=== PATIENT | female | born 1950 | race Caucasian/White ===

== ENCOUNTER 2023-11-09 10:34 | Outpatient (CLI) | payer MEDICARE, SELFPAY ==
--- NOTE | 2023-11-09 12:06 | W.ANESCHARGE ---
Anesthesia Charges Start Date/Time Anesthesia Start Date: 11/09/23 Anesthesia Start Time: 11:35 Stop Date/Time Anesthesia Stop Date: 11/09/23 Anesthesia Stop Time: 12:04
--- NOTE | 2023-11-09 13:23 | W.ANESCHARGE ---
Anesthesia Charges Start Date/Time Anesthesia Start Date: 11/09/23 Anesthesia Start Time: 11:35 Stop Date/Time Anesthesia Stop Date: 11/09/23 Anesthesia Stop Time: 12:04 Summary Extremes of Age - Over 70 or under 1: MDA
== END 2023-11-09 10:35 | disposition home or self-care (01) ==
LOC: OP CLINIC 10:37
PROVIDERS: PCP Family Medicine; Visit Provider Internal Medicine Gastroenterology
DX: Z12.11 Encounter for screening for malignant neoplasm of colon (principal); Q43.8 Other specified congenital malformations of intestine; Z83.719 Family history of colon polyps, unspecified
CPT/HCPCS: 00812; 45378; 99100; J2704

== ENCOUNTER 2024-03-29 23:24 | Emergency (ER) | payer MEDICARE, SELFPAY ==
--- OUTSIDE RECORDS SUMMARY | 2024-03-29 23:26 | XMS_ITS | Clinical Summary ---
Author Organization [facility] [facility] Address [place], [place] [address] Care Team Providers Care Orientor Name Role Phone Shazia Forbes MD Primary Care Provider [phone] Allergies No known active allergies Medications multivitamin capsule Take 1 Cap by mouth once daily. Active Calcium-Magnesiu m-Zinc tab Take 1 Tab by mouth once daily. Active cholecalciferol (VITAMIN D3) 1,000 unit capsule Take 1,000 Units by mouth once daily. Active glucosamine/jackie droitin/C/Eliud (GLUCOSAMINE 1500 COMPLEX ORAL) 2 Active apixaban (ELIQUIS) 5 mg tabletIndication s:Persistent atrial fibrillation (HC),Hypertensio n, unspecified type,Paroxysmal atrial fibrillation (HC) Take 1 Tablet (5 mg) by mouth two times daily. 180 Tablet 3 4 Active amLODIPine (NORVASC) 5 mg tabletIndication s:Hypertension, unspecified type Take 1 Tablet (5 mg) by mouth once daily. 90 Tablet 3 4 Active metoprolol succinate (TOPROL XL) 50 mg sustained-releas e tabletIndication s:Persistent atrial fibrillation (HC) Take 1 Tablet (50 mg) by mouth once daily. 90 Tablet 3 4 Active polyethylene glycol-electroly te (GOLYTELY) 236-22.74-6.74 -5.86 gram suspensionIndica tions:Family history of colonic polyps Drink 2 liters the day before colonoscopy and 2 liters 6 hours before colonoscopy appointment 4000 mL 4 Active Active Problems Problem Noted Date Diagnosed Date Paroxysmal atrial fibrillation 10/23/2023 Overview (10/23/2023): Documented on 03/07/2022 by HERBERT CHOW Assessment & Plan (10/23/2023 9:38 AM CDT): Ablation. No recurrence since. Menopause 07/20/2023 Hyperlipidemia 07/20/2023 Lesion of external ear, right 07/20/2023 Prediabetes 07/04/2022 HTN (hypertension) 07/04/2022 Family history of colonic polyps 07/29/2018 Overview (11/09/2023): Colonoscopy 07/2018 diverticulosis, repeat in 5 years with Pediatrics scope Colonoscopy 10/2023 tortuous sigmoid, repeat in 5 years with Pediatrics scope On continuous oral anticoagulation 04/10/2018 Unspecified essential hypertension 05/29/2007 Resolved Problems Problem Noted Date Diagnosed Date Resolved Date Persistent atrial fibrillation 07/04/2022 10/23/2023 Immunizations Name Administration Dates Next Due COVID-19 VACCINE SPIKEVAX (M ODERNA 50MCG/0.5ML) 12YO+ PFS 07/20/2023 COVID-19 vaccine (Pfizer-Bio NTech 30mcg/0.3mL) 12YO+ MNOAE-SUCROSE PF, MDV 06/30/2021 COVID-19 vaccine (Pfizer-Bio NTech 30mcg/0.3mL) PF, MDV 12/09/2021,01/04/2021,06/18/2020,2020 Hepatitis A (Adult) 03/30/2006,09/27/2005 Hepatitis B (Adult) 05/15/2007 Influenza A (H1N1), Inactiva annmarie (Age >=3 Years) 01/29/2009 Influenza, High-dose Inactivated 12/28/2017 Influenza, High-dose Quadriv alent Inactivated 12/26/2022 Influenza, IIV3 (Age >=3 years) 12/14/2014,06/29,12/26/2011 Influenza, IIV4 12/31/2012 Influenza, Inactivated AIIV4 (Age 65+ Years) Preserv Free 01/04/2021,02/03/2020 Influenza, Inactivated IIV3 (Age 65+ Years) Preserv Free 12/09/2021,12/24/2016 Pneumococcal Poly,23-Valent (Pneumovax) 02/03/2020 Pneumococcal conj 13-Valent (Prevnar 13) 12/28/2017 Td (Age >=7 Years) 04/01/2003 Tdap 01/23/2013 Zoster (Shingrix-RZV, recombinant) 07/20/2022 Zoster (Zostavax-ZVL, live) 01/23/2013 Family History Medical History Relation Name Comments Diabetes Father Hypertension Father Stroke Father Cancer-colon Mother Cancer-breast No Family History Relation Name Status Comments Father (Age 79) stroke Mother Alive Social History Tobacco Use Types Packs/Day Years Used Date Smoking Tobacco: Never Smokeless Tobacco: Never Tobacco Cessation:Counseling Given: Yes Alcohol Use Standard Drinks/Week Comments Yes 3 (1 standard drink = 0.6 oz pur e alcohol) [facility] Utilities Answer Date Recorded Do you have trouble paying f or utilities (for example, heat, electricity, water, phone)? Yes 07/20/2023 PHQ-2 Answer Date Recorded PHQ-2 TOTAL SCORE 0 07/20/2023 Social Connections Answer Date Recorded Do you often feel lonely or isolated from those around you? 0 07/20/2023 Financial Resource Strain Answer Date R ecorded Difficulty of Paying Living Expenses 3 07/20/2023 Difficulty of Paying Living Expenses Not on file 07/20/2023 Food Insecurity Answer Date Recorded Do you worry your food will run out before you are able to buy more? 1 07/20/2023 Transportation Needs Answer Date Record ed Does lack of transportation keep you from medica l appointments? 1 07/20/2023 Does lack of transportation keep you from work, meetings or getting things that you need? 1 07/20/2023 Housing Stability Answer Date Recorded What is your housing situation today? 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 on file Not on file Not on file Obstetrics History Para Term AB IAB SAB Ectopic Multiple Livin g Live Births 3 3 3 Date Outcome GA Total Labor Labor/2nd/3rd Weight Sex Type Anes PTL Maranda A1 A5 Name Clin Para Para Para Last Filed Vital Signs Vital Sign Reading Time Taken Comments Blood Pressure 136/87 10/23/2023 9:31 AM CDT Pulse 80 10/23/2023 9:31 AM CDT Temperature 36.7 C (98 F) 07/01/2022 10:16 AM CDT Respiratory Rate 16 07/01/2022 10:16 AM CDT Oxygen Saturation 96% 10/23/2023 9:31 AM CDT Inhaled Oxygen Concentration - - Weight 84.5 kg (186 lb 4.8 oz) 10/23/2023 9:31 A M CDT Height 173.6 cm (5' 8.35) 10/23/2023 9:31 AM CD T Body Mass Index 28.04 10/23/2023 9:31 AM CDT Plan of Treatment Health Maintenance Due Date Last Done Comments RSV vaccine for adults or (1 - Risk 60-74 years 1-dose series) 2011 Zoster (shingles) series for age 50+ (3 of 3) 09/14/2022 07/20/2022, 01/23/2013 Tetanus booster 01/23/2023 01/23/2013, 04/01/2003 COVID-19 vaccine series ( season) 2023 07/20/2023, 12/26/2022, 12/09/2021, Additional history exists Influenza for age 65+ 11/25/2023 12/26/2022 , 12/09/2021, 01/04/2021, Additional history exists Depression screening for age 12+ 07/19/2024 07/20/2023, 07/20/2023, 07/04/2022, Additional history exists Medicare Wellness for age 65+ 07/20/2024, 07/04/2022, 06/30/2021, Additional history exists Mammogram for age 45-75 10/17/2024 10/18/19 24, 07/29/2021, 02/17/2020, Additional history exists BMI (ht and wt on same day) for age 18+ 10/22/2024 10/23/2023, 07/20/2023, 07/18/2023, Additional history exists Lipids for age 45-75 07/19/2028 07/20/2023, 07/12/2022, 07/29/2021, Additional history exists Colonoscopy through age 75 11/08/202811/08, 11/09/2023, 07/29/2018, Additional history exists Tdap Completed 01/23/2013 Hepatitis C screening for ag e 18-79 Completed 12/28/2017 Pneumococcal series for age 50+ Completed , 12/28/2017 DEXA/DXA scan for age 65+ Completed 10/18/2023, 11/2017 Procedures Procedure Name Priority Date/Time Associated Diagnosis Comments COLONOSCOPY SCREENING Routine 11/09/2023 12:00 AM CDT Family history of colonic polyps XR MAMMO BILAT SCREENING Routine 10/18/2023 10:07 AM CDT Visit for screening mammogram XR DXA BONE DENSITY 2 SITES AXIAL Routine 10/18/2023 9:48 AM CDT Menopause LIPID PANEL W REFLEX MEASURED LDL Routine 07/20/2023 9:50 AM CDT Hyperlipidemia, unspecified hyperlipidemia type ANTI HCV Routine 12/28/2017 2:43 PM CDT Need for hepatitis C screening test from Last 3 Months or Most Recently Relevant to Health Maintenance Results * COLONOSCOPY SCREENING [[id number]] (11/09/2023 12:00 AM CDT) us Shazia Forbes MD GI PROCEDURE ORD Final Resu lt * XR MAMMO BILAT SCREENING [[id number]] (10/18/2023 10:07 AM CDT) Anatomical Region Laterality Modality BREASTS, Breast Left, Breast Right Bilateral Mammography Impressions 10/18/2023 2:24 PM CDT There is no radiographic evidence for malignancy. Recommend annual mammograms. MAMMOGRAM ASSESSMENT: ACR 1 Negative PATIENTS: You will also receive a letter with your examination results in an easy to read format. If you have questions about your results, please contact your referring provider. Narrative 10/18/2023 2:24 PM CDT For Patients: As a result of the Century Cures Act, medical imaging exams and procedure reports are released immediately into your electronic medical record. You may view this report before your referring provider. If you have questions, please contact your health care provider. XR MAMMO BILAT SCREENING [[id number]] CLINICAL HISTORY: This is an asymptomatic 73 y.o. patient. INDICATION FOR EXAM: Mammogram Screening. TECHNIQUE: CC & MLO views were obtained. This study was evaluated with the assistance of Computer-Aided Detection. COMPARISON FILM: Yes 07/29/21 [facility] 02/17/20 [facility] FINDINGS: The breasts are almost entirely fatty. There are no dominant masses, suspicious micro calcifications or areas of architectural distortion. us Shazia Forbes MD MAMMO Final Resul t * (ABNORMAL) XR DXA BONE DENSITY 2 SITES AXIAL (10/18/2023 9:48 AM CDT) Anatomical Region Laterality Modality Spine, HIPS, HIPL, HIPR Other Impressions 10/25/2023 2:32 PM CDT Osteopenia. RECOMMENDATIONS: The National Osteoporosis Foundation recommends pharmacologic treatment for patients with T-scores of -2.5 or less, patients with prior history of fragility fractures, or patients with 10-year probability of greater than 3% at hips or greater than 20% of suffering major osteoporotic fractures. Recommend continued optimization of calcium and vitamin D intake through dietary means and/or supplementation and regular exercise. Repeat scan recommended in 3-5 years. Marielena Velazco PA-C [facility] 10/25/2023 Narrative 10/25/2023 2:32 PM CDT For Patients: Results are automatically released to your [facility] ([email or web address]) account once available, in compliance with federal regulations. This means that you may see your results before your provider has had a chance to review them. Please allow 2-3 business days for your provider to comment on the results. XR DXA Bone Mineral Density (BMD) EXAM LOCATION: [address] [address] PATIENT NAME: Lindsay Lauren DATE OF : 1950 EXAM DATE: 10/18/2023 REQUESTING PROVIDER: Shazia Forbes MD GENDER AT : female HEIGHT: 5' 8.58 (07/20/2023) WEIGHT: 183 lb 12.8 oz (07/20/2023) MENOPAUSAL STATUS: Postmenopausal RACE/ETHNICITY: White RISK FACTORS: White Race CURRENT MEDICATION FOR BONE LOSS: NONE INDICATION: Post-Menopause and Follow-up of normal DXA COMPARISON DATE(S): 2018 DXA scans are compared to prior studies for a patient only when the two (or more) studies were performed on the same scanner. It is not possible to compare data generated on one scanner to data from another because there are not standards in DXA equipment. This applies even if the two scanners are made by the same cryptologic technician technical. PROCEDURE: Dual-energy x-ray absorptiometry performed with routine technique. Reporting is completed in the form of a T-score. The T-score represents the standard deviation from peak bone mass based on young healthy adult. A Z-score is used for diagnosis in premenopausal women, and for men under the age of 50. FINDINGS: RESULT LUMBAR SPINE L1 - L4 BMD: 1.169 g/cm2 T-Score: - 0.2 Z-Score: + 0.9 Change from prior in 2018: Decrease 0.5%. RESULTS FEMUR Left femoral neck BMD: 0.911 g/cm2 T-Score: - 0.9 Z-Score: + 0.5 Change from prior in 2018: Decrease 6.0%. Right femoral neck BMD: 0.894 g/cm2 T-Score: - 1.0 Z-Score: + 0.4 Change from prior in 2018: Decrease 9.1%. Left hip BMD: 0.944 g/cm2 T-Score: - 0.5 Z-Score: + 0.7 Change from prior in 2018: Decrease 3.7%. Right hip BMD: 0.966 g/cm2 T-Score: - 0.3 Z-Score: + 0.8 Change from prior in 2018: Decrease 6.3%. WHO criteria: Normal: T-score at or above -1 SD Osteopenia: T-score between -1.1 and -2.4 SD Osteoporosis: T-score at or below -2.5 SD FRAX RISK CALCULATION (USED FOR OSTEOPENIA ONLY): 10-year probability of major osteoporotic fracture: 9.4%. 10-year probability of hip fracture: 1.2%. Shazia Forbes MD DEXA Final Resul t * (ABNORMAL) LIPID PANEL W REFLEX MEASURED LDL (07/20/2023 9:50 AM CDT) Pathologist [facility] CHOLESTEROL,TOTAL 225(H) 100 - 199 mg/dL 07/20/2023 4:18 PM CDT [facility] Comment: Cholesterol, Total Reference Ranges Desirable <200 mg/dL Borderline 200-239 mg/dL High >=240 mg/dL TRIGLYCERIDES 107 <150 mg/dL 07/20/2023 4:18 PM CDT [facility] HDL CHOLESTEROL 63 >40 mg/dL 4:18 PM CDT [facility] NON-HDL CHOLESTEROL 162(H) <145 mg/dl 07/20/2023 4:18 PM CDT [facility] CHOL/HDL RATIO 3.57 <4.50 07/20/2023 4:18 PM CDT [facility] LDL CHOLESTEROL 141(H) <=130 mg/dL 07/20/2023 4:18 PM CDT [facility] VLDL CHOLESTEROL 21 <=30 mg/dL 07/20/2023 4:18 PM CDT [facility] PROVIDER ORDERED STATUS RANDOM 07/20/2023 4:18 PM CDT [facility] Blood BLOOD SPECIMEN / Unknown Venipuncture / Unknown 07/20/2023 9:50 AM CDT 07/20/2023 9:54 AM CDT Shazia Forbes MD CHEMISTRY Final Resul t [facility] [address] [place] [address], [place] * ANTI HCV [[id number]] (12/28/2017 2:43 PM CDT) HEPATITIS C ANTIBODY Non-React augusto Non-React augusto 12/28/2017 9:05 PM CDT [facility] Comment:Antibodies to HCV no t detected; does not exclude the possibility of exposure to HCV. Blood BLOOD SPECIMEN / Unknown Venipuncture / Unknown 12/28/2017 2:43 PM CDT 12/28/2017 2:43 PM CDT us Shazia Forbes MD SEND OUTS Final Resul t [facility] [address] [place] [address], from Last 3 Months or Most Recently Relevant to Health Maintenance Insurance MEDICARE PART B HB ONLY MEDICARE PART A HB ONLY [facility] Advance Directives Documents on File Type Date Recorded Patient Marketing Services Vice President Expl anation Healthcare Directive 02/20/2020 020 * Full Code (Latest Code Status on File) Date Activated Date Inactivated Comments 12/31/2020 9:02 AM 12/31/2020 1:05 PM Question Answer Comments Code Status Discussion: Not Discussed * Full Code Date Activated Date Inactivated Comments 12/24/2020 3:46 PM 12/25/2020 1:02 PM Question Answer Comments Code Status Discussion: Not Discussed Care Teams Orientor Relationship Specialty Start Date End Date Shazia Forbes MD [address] [place] [address] PCP - General Family Practice 05/28/17
[2024-03-29 23:49] VITALS: BP 144/101; PULSE 104; RESP 16; TEMP 36.7; O2SAT 96; BMI 28.1
--- NOTE | 2024-03-30 00:04 | ED_ITS ---
HPI - General Adult General Chief complaint: Nausea/Vomiting Stated complaint: Nausea, vomiting, dirrahea Time Seen by Provider: 03/29/24 23:52 Source: patient and family Mode of arrival: ambulatory Limitations: no limitations History of Present Illness HPI narrative: 73-year-old female with prior notable history of atrial fibrillation status post ablation presents the emergency department for evaluation of nausea vomiting and diarrhea for the past 6 hours. No fevers, no abdominal trauma or abdominal pain. No prior history of abdominal surgeries. No excessive alcohol intake her history of pancreatitis. Reports that she has been unable to hold down any water or her evening medications and is worried she could get dehydrated which has been a trigger for her to flip back into AFib in the past. Reports that she has been in sinus rhythm since her ablation 3 years ago. She does remain anticoagulated on Eliquis. There was no bloody vomit, no bloody diarrhea. Has not tried any medications or treatments to help with symptoms as she has been unable to hold down any water. No other generalized her systemic symptoms noted at the present time. Past medical history notable for prior AFib. Currently anticoagulated on Eliquis. Continues to take metoprolol and amlodipine. No other home medications, no allergies. Nonsmoker. ROS is notable for the GI symptoms only, otherwise denies times 12 systems today. 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 (ICD-10) Prediabetes ?R73.03 - Prediabetes (ICD-10) Hyperlipidemia ?E78.5 - Hyperlipidemia, unspecified (ICD-10) Menopause ?Z78.0 - Asymptomatic menopausal state (ICD-10) Paroxysmal A-fib ?I48.0 - Paroxysmal atrial fibrillation (ICD-10) Hypertension ?I10 - Essential (primary) hypertension (ICD-10) Surgical History History of colonoscopy ?Z98.890 - Other specified postprocedural states (ICD-10) History of bunionectomy ?Z98.890 - Other specified postprocedural states (ICD-10) Social History Smoking Status: Never smoker Second hand tobacco smoke exposure: No How often do you have a drink containing alcohol: never AUDIT-C Alcohol total score: 0 Non-prescribed substance use: denies use Exam Const: Vital Signs, click to edit/add: Vital Signs - 24 hr 03/29/24 23:49 Temperature 98.1 F Pulse Rate [Pulse Oximeter] 104 H Respiratory Rate 16 Blood Pressure [Ri ght Upper Arm] 144/101 H Pulse Oximetry 96 Oxygen Delivery Me thod Room Air Documenting provider has reviewed patient's vital signs: yes Common normals: no apparent distress General appearance: cooperative, comfortable and well kempt HENMT: Common normals: normocephalic, oropharynx normal and dentition normal Head and scalp: normocephalic Mouth: oral and palatal mucosa normal Other: Oral membranes slightly dry, no other signs of dehydration Eye: Common normals: conjunctivae normal General eye: normal appearance of both eyes Conjunctiva: conjunctiva(e) normal Neck & C-Spine: General: normal visual inspection Resp: Common normals: normal respiratory effort, no use of accessory muscles and clear to auscultation bilaterally Effort & inspection: able to speak in complete sentences Auscultation: clear to auscultation bilaterally Cardio: Common normals: regular rate, regular rhythm, S1 normal heart sound, S2 normal heart sound and no murmurs Rate: regular rate Rhythm: regular rhythm Heart sounds: S1 normal and S2 normal GI: Common normals: Normal to inspection, nondistended, normoactive bowel sounds present, soft to palpation, non-tender and no hepatosplenomegaly Inspection: normal to inspection Palpation: soft and no hepatosplenomegaly Extremity: Common normals: normal to inspection, normal capillary refill and no pedal edema Psych: Common normals: cooperative and speech normal Appearance: well kempt Speech: normal speech Insight: insight good Judgement: judgment good Skin: Common normals: no rashes or lesions noted General skin exam: no rashes or lesions noted Course Course ED Course: 73-year-old female with symptoms most likely consistent with a viral gastroenter itis, cannot exclude bacterial infection, intra-abdominal infection, risk of dehydration or arrhythmia due to underlying cardiac conditions. At this time, vitals show very mild tachycardia but not unexpected. Would recommend we try some oral Zofran and oral Imodium and then try oral rehydration after these interventions. Will re-evaluate in about 60-90 minutes and see how that went and consider additional workup and or intervention as needed. Reevaluation(s) Time of Reevaluation #1: 01:13 Reevaluation #1: Patient still reports that she is feeling nauseated but she has held down over 6 oz of fluids, she has not had any further retching. Her pulse has come down. I do think it is safe to send her home. Counseled patient that she will still have some nausea but I am thankful that we have gotten the vomiting under control. She has not had any any diarrhea while she has been here. Offered additional medication but counseled that it would cause some sedation. At this time, I recommend we just stick with the Zofran since it has been effective at stopping the vomiting. She is not showing any signs of dehydration at this time and does not meet any criteria for IV fluids. Alarm symptoms were reviewed that would warrant return to the ED. She verbalizes understanding and agreement. Prescription for Zofran sent through [email or web address]. Vital Signs Vital signs: Initial Vital Signs Temperature 98.1 F 03/29/24 23:49 Temperature Source Temporal Artery Scan 03/29/24 23:49 Pulse Rate 104 H 03/29/24 23:49 Respiratory Rate 16 03/29/24 23:49 Blood Pressure 144/101 H 03/29/24 23:49 Blood Pressure Mean 115 H 03/29/24 23:49 Blood Pressure Position Sitting 03/29/24 23:49 Pulse Oximetry 96 03/29/24 23:49 Oxygen Delivery Method Room Air 03/29/24 23:49 Vital Signs Temperature 98.1 F 03/29/24 23:49 Pulse Rate 104 H 03/29/24 23:49 Respiratory Rate 16 03/29/24 23:49 Blood Pressure 144/101 H 03/29/24 23:49 Pulse Oximetry 96 03/29/24 23:49 Oxygen Delivery Method Room Air 03/29/24 23:49 Temperature 98.1 F 03/29/24 23:49 Pulse Rate 104 H 03/29/24 23:49 Respiratory Rate 16 03/29/24 23:49 Blood Pressure 144/101 H 03/29/24 23:49 Pulse Oximetry 96 03/29/24 23:49 Oxygen Delivery Method Room Air 03/29/24 23:49 Medications Administered Medications: Discontinued Medications Generic Name Dose Route Start Last Admin Trade Name Fang PRN Reason Stop Dose Admin Loperamide HCl 4 mg 03/30/24 00:03 03/30/24 00:32 Loperamide Hcl 2 Mg Capsule PO 03/30/24 00:04 2 mg ONCE ONE Administration Ondansetron HCl 4 mg 03/30/24 00:03 03/30/24 00:05 Ondansetron Odt 4 Mg Tab PO 03/30/24 00:04 4 mg ONCE ONE Administration Discharge Plan Discharge Clinical Impression: Gastroenteritis Patient Disposition: Home w/ Parent or Adult Condition: Improved Instructions: Gastroenteritis (DC) Additional Instructions: As we discussed, your symptoms are most likely consistent with gastroenteritis, or the stomach flu. Most of the time this is caused by a virus, unlikely that it was from any contaminated food. Unfortunately, it is quite contagious. There is benefit to wiping all surfaces down with bleach and trying to use a separate bathroom than the rest of your family if possible. Symptoms tend to last for 3-4 days but can sometimes be longer in susceptible people. I have given you a dose of Zofran which is an anti nausea medication. This usually helps with the vomiting but most people still feel somewhat nauseated. With the medication, you can typically hold down some fluid which is our primary goal. You or given a dose of Imodium, this is an anti diarrhea medicine. Since you elected to take 2 mg instead of 4, you may still require further dosing. This is a medication that is available [id number], you may continue taking it up to every 2 hours as needed for subsequent diarrhea. I have given you a prescription for more of the Zofran. You had a dose at around midnight, please automatically take another dose at 6:00 a.m. and again at noon today. If you continue to have symptoms after that, you may continue using the medication up to every 6 hours on an as-needed basis. Bloody diarrhea, bloody vomit, high fever and severe abdominal pain would not be expected, if these occur, I would like for you to return to the emergency department. Continue pushing fluids, slowly advance your diet as you feel better. Try to stay home for the next 24- 48 hours to avoid potential spread to others Activity Level: Activity as Tolerated Discharge Diet: Regular Prescriptions: No Action metoprolol succinate 50 mg tablet extended release 24 hr 50 mg PO DAILY amlodipine 5 mg tablet 5 mg PO DAILY Eliquis 5 mg tablet 5 mg PO BID Follow Up/Referrals: Shazia Forbes MD [Primary Care Provider] - Stand Alone Forms: [facility] Info Instructions
[2024-03-30] MEDS: ONDANSETRON ODT 4 MG TAB PO (00:05)
--- OUTSIDE RECORDS SUMMARY | 2024-03-30 00:09 | XMS_ITS | Clinical Summary ---
Author Organization [facility] Address [place], [place] [address] Care Team Providers Care Calculation Reviewer Name Role Phone Shazia Forbes MD Primary Care Provider [phone] Allergies No known active allergies Medications multivitamin [...] 07/20/2023 COVID-19 vaccine (Pfizer-Bio NTech 30mcg/0.3mL) 12YO+ MONAE-SUCROSE PF, MDV 06/30/2021 COVID-19 vaccine (Pfizer-Bio NTech [...] drink = 0.6 oz pur e alcohol) 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 XR MAMMO BILAT SCREENING [[id number]] CLINICAL HISTORY: This is an asymptomatic 73 y.o. patient. INDICATION FOR EXAM: Mammogram Screening. TECHNIQUE: CC & MLO views were obtained. This study was evaluated with the assistance of Computer-Aided Detection. COMPARISON FILM: Yes 07/29/[address] [facility] 02/17/[address] [facility] FINDINGS: The breasts are almost entirely fatty. [...] recommended in 3-5 years. Marielena Velazco PA-C [facility] 10/25/2023 Narrative 10/25/2023 2:32 PM CDT For Patients: Results are automatically released to your [facility] ([email or web address]) account once available, in compliance with federal regulations. This means that you may see your results before your provider has had a chance to review them. Please allow 2-3 business days for your provider to comment on the results. XR DXA Bone Mineral Density (BMD) EXAM LOCATION: [address] [address] PATIENT NAME: Lindsay Lauren DATE OF : [...] two scanners are made by the same lead fire protection engineer. PROCEDURE: Dual-energy x-ray absorptiometry performed with routine [...] MEASURED LDL (07/20/2023 9:50 AM CDT) Pathologist [facility] CHOLESTEROL,TOTAL 225(H) 100 - 199 mg/dL 07/20/2023 4:18 PM CDT [facility] Comment: Cholesterol, Total Reference Ranges Desirable <200 mg/dL Borderline 200-239 mg/dL High >=240 mg/dL TRIGLYCERIDES 107 <150 mg/dL 07/20/2023 4:18 PM CDT [facility] HDL CHOLESTEROL 63 >40 mg/dL 4:18 PM CDT [facility] NON-HDL CHOLESTEROL 162(H) <145 mg/dl 07/20/2023 4:18 PM CDT [facility] CHOL/HDL RATIO 3.57 <4.50 07/20/2023 4:18 PM CDT [facility] LDL CHOLESTEROL 141(H) <=130 mg/dL 07/20/2023 4:18 PM CDT [facility] VLDL CHOLESTEROL 21 <=30 mg/dL 07/20/2023 4:18 PM CDT [facility] PROVIDER ORDERED STATUS RANDOM 07/20/2023 4:18 PM CDT [facility] Blood BLOOD SPECIMEN / Unknown Venipuncture / Unknown 07/20/2023 9:50 AM CDT 07/20/2023 9:54 AM CDT Shazia Forbes MD CHEMISTRY Final Resul t [facility] [address] [place] [address], [place] * ANTI HCV [[id number]] (12/28/2017 2:43 PM CDT) HEPATITIS C ANTIBODY Non-React augusto Non-React augusto 12/28/2017 9:05 PM CDT [facility] Comment:Antibodies to HCV no t detected; does not exclude the possibility of exposure to HCV. Blood BLOOD SPECIMEN / Unknown Venipuncture / Unknown 12/28/2017 2:43 PM CDT 12/28/2017 2:43 PM CDT us Shazia Forbes MD SEND OUTS Final Resul t [facility] [address] [place] [address], from Last 3 Months or Most Recently Relevant to Health Maintenance Insurance MEDICARE PART B HB ONLY MEDICARE PART A HB ONLY [facility] Advance Directives Documents on File Type Date Recorded Patient Special Education Science Teacher Expl anation Healthcare Directive 02/20/2020 020 * Full Code (Latest Code Status on File) Date Activated Date Inactivated Comments 12/31/2020 9:02 AM 12/31/2020 1:05 PM Question Answer Comments Code Status Discussion: Not Discussed * Full Code Date Activated Date Inactivated Comments 12/24/2020 3:46 PM 12/25/2020 1:02 PM Question Answer Comments Code Status Discussion: Not Discussed Care Teams Calculation Reviewer Relationship Specialty Start Date End Date Shazia Forbes MD [address] [place] [address] PCP - General Family Practice 05/28/17
[2024-03-30] MEDS: LOPERAMIDE HCL 2 MG CAPSULE 4 MG PO (00:32)
[2024-03-30 01:25] VITALS: PULSE 76; RESP 16; O2SAT 96
== END 2024-03-30 01:54 | disposition home or self-care (01) ==
PROVIDERS: Emergency Provider Family Medicine; PCP Family Medicine
DX: K52.9 Noninfective gastroenteritis and colitis, unspecified (principal)
CPT/HCPCS: 99283; A9270

== ENCOUNTER 2024-11-04 14:52 | Emergency (ER) | payer MEDICARE, SELFPAY ==
--- OUTSIDE RECORDS SUMMARY | 2024-11-04 14:54 | XMS_ITS | Clinical Summary ---
Author Organization [facility] Address [address] [place] [address] Care Team Providers Care Pepper Picker Name Role Phone Shazia Forbes MD Primary Care Provider [phone] Allergies No known active allergies Medications multivitamin capsule Take 1 Cap by mouth once daily. Active Calcium-Magnesium -Zinc tab Take 1 Tab by mouth once daily. Active apixaban 5 mg tabletIndications :Persistent atrial fibrillation (HC),Hypertension , unspecified type,Paroxysmal atrial fibrillation (HC) Take 1 Tablet (5 mg) by mouth two times daily. 180 Tablet 3 07/29/2024 Active metoprolol succinate 50 mg sustained-release tabletIndications :Persistent atrial fibrillation (HC) Take 1 Tablet (50 mg) by mouth once daily. 90 Tablet 3 08/21/2024 Active amLODIPine 5 mg tabletIndications :Hypertension, unspecified type Take 1 Tablet (5 mg) by mouth once daily. 90 Tablet 3 08/21/2024 Active Active Problems Problem Noted Date Diagnosed Date Skin cancer 10/06/2024 Overview (10/06/2024): 09/30/24: right inferior antihelix, BCC, needs Mohs Paroxysmal atrial fibrillation 10/23/2023 Overview (10/23/2023): Documented [...] Resolved Date Persistent atrial fibrillation 07/04/2022 10/23/2023 Encounters Date Type Department Care Team Description 10/06/2024 Telephone [facility] [address] [address] Laura Rich MD Abnormal Lab Results 09/30/2024 11:20 AM CDT Office Visit [facility] [address] [address] Laura Rich MD Derm Problem 09/30/2024 Travel 09/25/2024 Travel 08/21/2024 2:15 PM CDT Orders Only [facility] [address] [place] [address] Lab, [place] [facility] 08/21/2024 1:10 PM CDT Office Visit [facility] [address] [place] [address] Shazia Forbes MD Medicare ANNUAL (subsequent) Visit (74 Year Old); Ear Problem (Right ear lobe ) 08/21/2024 Travel 08/18/2024 Travel 08/05/2024 Refill [facility] [address] [place] [address] Shazia Forbes MD Refill Request (Metoprolol Succinate, Amlodipine) from Last 3 Months Immunizations Immunization Administration Dates Next Due COVID-19 VACCINE SPIKEVAX (M ODERNA 50MCG/0.5ML) 12YO+ PFS 07/20/2023 COVID-19 vaccine (GENELINK-Bio NTech 30mcg/0.3mL) 12YO+ MONAE-SUCROSE PF, MDV 06/30/2021 COVID-19 vaccine (GrovoBio NTech 30mcg/0.3mL) PF, MDV 12/09/2021,01/04/2021,06/18/2020,2020 Hepatitis A (Adult) 03/30/2006,09/27/2005 Hepatitis B (Adult) 05/15/2007, 1,05/06/1990,1990 Influenza A (H1N1), Inactiva annmarie (Age >=3 Years) 01/29/2009 Influenza, High-dose Inactivated 01/07/2024,07/2017 Influenza, High-dose Quadriv alent Inactivated 12/26/2022 Influenza, IIV3 (Age >=3 years) 12/14/2014,06/29,12/26/2011 Influenza, IIV4 12/31/2012 Influenza, Inactivated AIIV4 (Age 65+ Years) Preserv Free 01/04/2021,02/03/2020 Influenza, Inactivated IIV3 (Age 65+ Years) Preserv Free 12/09/2021,12/24/2016 Pneumococcal Poly,23-Valent (Pneumovax) 02/03/2020 Pneumococcal conj 13-Valent (Prevnar 13) 12/28/2017 Td (Age >=7 Years) 04/01/2003 Tdap 01/25/2024,01/23/2013 Zoster (Shingrix-RZV, recombinant) 07/20/2022 Zoster (Zostavax-ZVL, live) [...] drink = 0.6 oz pur e alcohol) PHQ-2 Answer Date Recorded PHQ-2 TOTAL SCORE 0 08/21/2024 Social Connections Answer Date Recorded Do you often feel lonely or isolated from those around you? 0 08/18/2024 Financial Resource Strain Answer Date R ecorded Difficulty of Paying Living Expenses 3 08/18/2024 Difficulty of Paying Living Expenses Not on file 08/18/2024 Food Insecurity Answer Date Recorded Do you worry your food will run out before you are able to buy more? 1 08/18/2024 Transportation Needs Answer Date Record ed Does lack of transportation keep you from medica l appointments? 1 08/18/2024 Does lack of transportation keep you from work, meetings or getting things that you need? 1 08/18/2024 Housing Stability Answer Date Recorded What is your housing situation today? 1 08/18/2024 Utilities Answer Date Recorded Do you have trouble paying f or utilities (for example, heat, electricity, water, phone)? 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 Not on file Not on file Obstetrics History Para Term AB IAB SAB Ectopic Multiple Livin g Live Births 3 3 3 Date Outcome GA Total Labor Labor/2nd/3rd Weight Sex Type Anes PTL Maranda A1 A5 Name Clin Para Para Para Last Filed Vital Signs Vital Sign Reading Time Taken Comments Blood Pressure 122/64 08/21/2024 1:38 PM CDT Pulse 74 08/21/2024 1:13 PM CDT Temperature 36.7 C (98 F) 07/01/2022 10:16 AM CDT Respiratory Rate 16 07/01/2022 10:16 AM CDT Oxygen Saturation 97% 08/21/2024 1:13 PM CDT Inhaled Oxygen Concentration - - Weight 85.8 kg (189 lb 3.2 oz) 08/21/2024 1:13 P M CDT Height 174.5 cm (5' 8.7) 08/21/2024 1:13 PM CDT Body Mass Index 28.18 08/21/2024 1:13 PM CDT Plan of Treatment Upcoming Encounters Date Type Department Care Team (Late st Contact Info) Description 12/22/2024 12:00 PM CDT Procedure Only [facility] [address] [address] [place] MD [address] [facility] [address] [place] [address] 04/07/2025 10:10 AM PLANT SPRAYER Office Visit [facility] [address] [id number] [place] [address] [place] [address] Health Maintenance Due Date Last Done Comments Zoster (shingles) series for age 50+ (3 of 3) 09/14/2022 07/20/2022, 01/23/2013 COVID-19 vaccine series ( season) 2024 01/07/2024, 07/20/2023, 12/26/2022, Additional history exists Mammogram for age 45-75 10/17/2024 10/18/19 24, 07/29/2021, 02/17/2020, Additional history exists Influenza Vaccine (#1) 2024 , 12/09/2021, 01/04/2021, Additional history exists BMI (ht and wt on same day) for age 18+ 08/21/2025 08/21/2024, 10/23/2023, 07/20/2023, Additional history exists Depression screening for age 12+ 08/21/2025 08/21/2024, 07/20/2023, 07/20/2023, Additional history exists Medicare Wellness for age 65+ 08/22/2025, 07/20/2023, 07/04/2022, Additional history exists RSV vaccine for adults or (1 - 1-dose 75+ series) 2026 Colonoscopy through age 75 11/08/202811/08, 11/09/2023, 07/29/2018, Additional history exists Lipids for age 45-75 08/21/2029 08/21/2024, 07/20/2023, 07/12/2022, Additional history exists Tetanus booster 01/24/2034 01/25/2024, 12/26, 04/01/2003 Hepatitis B series for 19+ Completed 05/15, 10/12/1990, 05/06/1990, Additional history exists Hepatitis C screening for ag e 18-79 Completed 12/28/2017 Pneumococcal series for age 50+ Completed , 12/28/2017 DEXA/DXA scan for age 65+ Completed 10/18/2023, 11/2017 Procedures Procedure Name Priority Date/Time Associated Diagnosis Comments PATH TISSUE EXAM Routine 09/30/2024 11:2 5 AM CDT Neoplasm of unspecified behavior of bone, soft tissue, and skin ALT (SGPT) Routine 08/21/2024 2:09 PM CDT Paroxysmal atrial fibrillation (HC) AST (SGOT) Routine 08/21/2024 2:09 PM CDT Paroxysmal atrial fibrillation (HC) LIPID PANEL W REFLEX MEASURED LDL Routine 08/21/2024 2:04 PM CDT Hyperlipidemia, unspecified hyperlipidemia type COMP METABOLIC PANEL Routine 08/21/2024 2:04 PM CDT Prediabetes HEMOGLOBIN A1C Routine 08/21/2024 2:04 PM CDT Prediabetes COLONOSCOPY SCREENING Routine 11/09/2023 12:00 AM CDT Family history of colonic polyps XR MAMMO BILAT SCREENING Routine 10/18/2023 10:07 AM CDT Visit for screening mammogram XR DXA BONE DENSITY 2 SITES AXIAL Routine 10/18/2023 9:48 AM CDT Menopause ANTI HCV Routine 12/28/2017 2:43 PM CDT Need for hepatitis C screening test from Last 3 Months or Most Recently Relevant to Health Maintenance Results * PATH TISSUE EXAM (09/30/2024 11:25 AM CDT) Case Report Pathology Report Case: [id number] Authorizing Provider: Laura Rich MD Collected: 09/30/2024 1125 Ordering Location: [facility] Received: 09/30/2024 1552 [facility] Pathologist: Beth Kirk MD Specimen: Skin, Right inferior antihelix 10/03/2024 5:12 PM CDT [facility] Final Diagnosis SKIN, RIGHT INFERIOR ANTIHELIX, BIOPSY: 1. Basal cell carcinoma, nodular and infiltrative types: a. Perineural invasion: Absent b. Margins: Positive 10/03/2024 5:12 PM CDT [facility] at 1712 CDT Clinical Information Rule out BCC. 10/03/2024 5:12 PM CDT [facility] Gross Description A) Received in formalin, labeled with the patient's name and right inferior antihelix, is a 1.0 x 0.8 x 0.2 cm skin biopsy. There is a 1.0 x 0.8 cm raised guerin lesion. The specimen is inked black, trisected and entirely submitted in one cassette. TRS 10/01/2024 10/03/2024 5:12 PM CDT [facility] Microscopic Description The final diagnosis is based on microscopic examination of appropriate sections of all specimens. There is a nodular and infiltrative neoplasm composed of hyperchromatic epithelial cells with little cytoplasm and little mitotic activity, associated with some cleft formation adjacent to the stroma. The presence of black ink is confirmed on tissue sections. 10/03/2024 5:12 PM CDT [facility] Additional Information Interpreted at [facility], Central Laboratory - [address], [place] [address] 10/03/2024 5:12 PM CDT [facility] Other SPECIMEN FROM SKIN / Unknown Non-Blood / Unknown 09/30/2024 11:25 AM CDT 09/30/2024 3:52 PM CDT Comment:A) Rule out BCC Laura Rich MD PATHOLOGY/CYTOLOGY Final Result Performing Organization Address City/[facility]/ZIP Co de Phone Number [facility] [address] [place] [address], [place] * ALT (SGPT) (08/21/2024 2:09 PM CDT) ALT (SGPT) 26 10 - 35 IU/L 08/21/2024 10:35 PM CDT [facility] Blood BLOOD SPECIMEN / Unknown [facility] / Unknown 08/21/2024 2:09 PM CDT 08/21/2024 2:09 PM CDT Vinay Marion MD CHEMISTRY Final Resul t Performing Organization Address [facility] Co de Phone Number [facility] [address] [place] [address], [place] * AST (SGOT) (08/21/2024 2:09 PM CDT) AST (SGOT) 27 10 - 35 IU/L 08/21/2024 10:35 PM CDT [facility] Blood BLOOD SPECIMEN / Unknown [facility] / Unknown 08/21/2024 2:09 PM CDT 08/21/2024 2:09 PM CDT Vinay Marion MD CHEMISTRY Final Resul t Performing Organization Address [facility] Co de Phone Number [facility] [address] [place] [address], [place] * (ABNORMAL) HEMOGLOBIN A1C (08/21/2024 2:04 PM CDT) HEMOGLOBIN A1C 6.6(H) <5.7 % [facility] Comment: For someone without known diabetes, a hemoglobin A1c value of 6.5% or greater indicates that they may have diabetes and this should be confirmed with a follow-up test. For someone with known diabetes, a value <7% indicates that their diabetes is well controlled and a value greater than or equal to 7% indicates suboptimal control. A1c targets should be individualized based on duration of diabetes, age, comorbid conditions, and other considerations. Currently, no consensus exists regarding use of hemoglobin A1c for diagnosis of diabetes for children. Blood BLOOD SPECIMEN / Unknown 08/21/2024 2:04 PM CDT 08/21/2024 2:04 PM CDT Narrative [facility] - 08/22/2024 4:28 AM CDT FASTING:NO FASTING: NO us Shazia Forbes MD CHEMISTRY Final Resul t Street [employer] [facility] [address] [place] [address], [facility] [address] [place] [address] * (ABNORMAL) LIPID PANEL W REFLEX MEASURED LDL (08/21/2024 2:04 PM CDT) [facility] CHOLESTEROL, TOTAL 221(H) <200 mg/dL [facility] HDL CHOLESTEROL 52 > OR = 50 mg/dL [employer] [facility] TRIGLYCERIDES 189(H) <150 mg/dL [facility] LDL-CHOLESTEROL 136(H) mg/dL (calc) [facility] Comment: Reference range: <100 Desirable range <100 mg/dL for primary prevention; <70 mg/dL for patients with CHD or diabetic patients with > or = 2 CHD risk factors. LDL-C is now calculated using the Rafael-Che calculation, which is a validated novel method providing better accuracy than the Friedewald equation in the estimation of LDL-C. Rafael CAMPBELL et al. JOHN. 2013;310(19): 9751-1816 (http://education.Kloneworld/faq/BVG606) CHOL/HDLC RATIO 4.3 <5.0 (calc) [employer] NON HDL CHOLESTEROL 169(H) <130 mg/dL (calc) [facility] Comment: For patients with diabetes plus 1 major ASCVD risk factor, treating to a non-HDL-C goal of <100 mg/dL (LDL-C of <70 mg/dL) is considered a therapeutic option. Blood BLOOD SPECIMEN / Unknown 08/21/2024 2:04 PM CDT 08/21/2024 2:04 PM CDT Narrative [facility] - 08/22/2024 3:48 AM CDT FASTING:NO FASTING: NO us Shazia Forbes MD CHEMISTRY Final Resul t Street [employer] [facility] [address] [place] [address], [employer] [address] [place] [address] * (ABNORMAL) COMP METABOLIC PANEL (08/21/2024 2:04 PM CDT) GLUCOSE 106(H) 65 - 99 mg/dL [employer] Comment: Fasting reference interval For someone without known diabetes, a glucose value between 100 and 125 mg/dL is consistent with prediabetes and should be confirmed with a follow-up test. UREA NITROGEN (BUN) 17 7 - 25 mg/dL [facility] CREATININE 0.79 0.60 - 1.00 mg/dL [facility] EGFR 79 > OR = 60 mL/min/1. 73m2 [facility] BUN/CREATININE RATIO SEE NOTE: 6 - 22 (calc) [facility] Comment: Not Reported: BUN and Creatinine are within reference range. SODIUM 140 135 - 146 mmol/L [facility] POTASSIUM 4.0 3.5 - 5.3 mmol/L [facility] CHLORIDE 104 98 - 110 mmol/L [facility] CARBON DIOXIDE 26 20 - 32 mmol/L [facility] CALCIUM 9.3 8.6 - 10.4 mg/dL [facility] PROTEIN, TOTAL 7.2 6.1 - 8.1 g/dL [facility] ALBUMIN 4.6 3.6 - 5.1 g/dL [facility] GLOBULIN 2.6 1.9 - 3.7 g/dL (calc) [facility] ALBUMIN/GLOBULIN RATIO 1.8 1.0 - 2.5 (calc) [facility] BILIRUBIN, TOTAL 0.7 0.2 - 1.2 mg/dL [facility] ALKALINE PHOSPHATASE 101 37 - 153 U/L [facility] AST 22 10 - 35 U/L [facility] ALT 21 6 - 29 U/L [facility] Blood BLOOD SPECIMEN / Unknown 08/21/2024 2:04 PM CDT 08/21/2024 2:04 PM CDT Narrative [facility] - 08/22/2024 3:48 AM CDT FASTING:NO FASTING: NO Shazia Forbes MD CHEMISTRY Final Resul t Street [employer] [facility] [address] [place] [address], [facility] [address] [place] [address] * COLONOSCOPY SCREENING [[id number]] (11/09/2023 12:00 AM CDT) Shazia Forbes MD GI PROCEDURE ORD Final Resu lt * XR MAMMO BILAT SCREENING [[id number]] (10/18/2023 10:07 AM CDT) Anatomical Region Laterality [...] health care provider. XR MAMMO BILAT SCREENING [[id number]] CLINICAL HISTORY: This is an asymptomatic 73 y.o. patient. INDICATION FOR EXAM: Mammogram Screening. TECHNIQUE: CC & MLO views were obtained. This study was evaluated with the assistance of Computer-Aided Detection. COMPARISON FILM: Yes 07/29/21 [facility] 02/17/20 [facility] FINDINGS: The breasts are almost entirely fatty. [...] recommended in 3-5 years. Marielena Velazco PA-C [facility] 10/25/2023 Narrative 10/25/2023 2:32 PM CDT For Patients: Results are automatically released to your [facility] ([employer]) account once available, in compliance with federal regulations. This means that you may see your results before your provider has had a chance to review them. Please allow 2-3 business days for your provider to comment on the results. XR DXA Bone Mineral Density (BMD) EXAM LOCATION: [address] [address] PATIENT NAME: Lindsay Lauren DATE OF : [...] two scanners are made by the same barrel ribs solderer. PROCEDURE: Dual-energy x-ray absorptiometry performed with routine [...] 9.4%. 10-year probability of hip fracture: 1.2%. us Shazia Forbes MD DEXA Final Resul t * ANTI HCV [[id number]] (12/28/2017 2:43 PM CDT) HEPATITIS C ANTIBODY Non-React augusto Non-React augusto 12/28/2017 9:05 PM CDT [facility] Comment:Antibodies to HCV no t detected; does not exclude the possibility of exposure to HCV. Blood BLOOD SPECIMEN / Unknown Venipuncture / Unknown 12/28/2017 2:43 PM CDT 12/28/2017 2:43 PM CDT us Shazia Forbes MD SEND OUTS Final Resul t [facility] [address] [place] [address], [place] from Last 3 Months or Most Recently Relevant to Health Maintenance Insurance MEDICARE PART B HB ONLY MEDICARE PART A HB ONLY [facility] Advance Directives Documents on File Type Date Recorded Patient Activity Aid Expl anation Healthcare Directive 02/20/2020 020 * Full Code (Latest Code Status on File) Date Activated Date Inactivated Comments 12/31/2020 9:02 AM 12/31/2020 1:05 PM Question Answer Comments Code Status Discussion: Not Discussed * Full Code Date Activated Date Inactivated Comments 12/24/2020 3:46 PM 12/25/2020 1:02 PM Question Answer Comments Code Status Discussion: Not Discussed Care Teams Pepper Picker Relationship Specialty Start Date End Date Shazia Forbes MD [address] [place] [address] PCP - General Family Practice 05/28/17
[2024-11-04 14:56] VITALS: BP 138/92; PULSE 71; RESP 16; TEMP 36.2; O2SAT 97; BMI 28.1
--- NOTE | 2024-11-04 14:59 | ED.GENADULT ---
HPI - General Adult General Chief complaint: Insect Bite Stated complaint: Swollen left hand, wasp stings Time Seen by Provider: 11/04/24 14:55 History of Present Illness HPI narrative: This 74-year-old female was stung several x2 days ago by wasps. She has a couple injuries on her left hand and wrist and 1 in her low left upper leg. Her hand and wrist is significantly swollen with erythema so she comes in for evaluation. Related Data Home Medications ?Medication ?Instructions ?Recorded ?Confirmed amlodipine 5 mg tablet 5 mg PO DAILY 03/29/24 11/04/24 apixaban 5 mg tablet (Eliquis) 5 mg PO BID 03/29/24 11/04/24 metoprolol succinate 50 mg 50 mg PO DAILY 03/29/24 11/04/24 tablet,extended release 24 hr Previous Rx's ?Medication ?Instructions ?Recorded amoxicillin 875 mg-potassium 1 tab PO BID #14 tabs 11/04/24 clavulanate 125 mg tablet methylprednisolone 4 mg tablets in See Rx Instructions PO .COMPLEX 11/04/24 a dose pack (Medrol (Hugh)) #21 ea Allergies Allergy/AdvReac Type Severity Reaction Status Date / Time bee venom protein (honey bee) Allergy Unknown Verified 11/04/24 15:00 Beef Containing Products Allergy Unknown Verified 11/04/24 15:00 Review of Systems Status of ROS: Reports: 10 or more systems reviewed and unremarkable except as noted in History and below Narrative: Constitutional: No fevers, no weight gain or loss. Eyes: No discharge. No vision changes. HENT: No congestion, no sore throat, no ear pain. Cardiovascular: No chest pain, no palpitations. Respiratory: No shortness of breath, no wheezes, no cough. Gastrointestinal: No abdominal pain, no vomiting, no diarrhea. Genitourinary: No dysuria, no hematuria. Musculoskeletal: Normal range of motion. Skin: Reaction to wasp or bee stings on the left hand and wrist and the left upper leg. Neurological: No dizziness, weakness, sensory change, speech change. Endo/Heme/Allergies: No bruising or bleeding. No polydipsia. Pysch: no suicidality, no anxiety, no insomnia. All other systems reviewed and are negative. [facility] Medical History On continuous oral anticoagulation ?Z79.01 - salvage determiner (current) use of anticoagulants (ICD-10) Prediabetes ?R73.03 - Prediabetes (ICD-10) Hyperlipidemia ?E78.5 - Hyperlipidemia, unspecified (ICD-10) Menopause ?Z78.0 - Asymptomatic menopausal state (ICD-10) Paroxysmal A-fib ?I48.0 - Paroxysmal atrial fibrillation (ICD-10) Hypertension ?I10 - Essential (primary) hypertension (ICD-10) Surgical History History of colonoscopy ?Z98.890 - Other specified postprocedural states (ICD-10) History of bunionectomy ?Z98.890 - Other specified postprocedural states (ICD-10) Social History Smoking Status: Never smoker Second hand tobacco smoke exposure: No How often do you have a drink containing alcohol: 2-4 times a month How many standard drinks containing alcohol do you have on a typical day: 1 or 2 AUDIT-C Alcohol total score: 2 Non-prescribed substance use: denies use Exam Narrative: Exam Narrative: Constitutional: Well-developed, well-nourished, no acute distress. HEENT: Normocephalic, atraumatic. Neck: Normal range of motion. Nontender. Supple. Heart: Regular. No murmurs. Normal rate. Intact distal pulses. Lungs: Clear to auscultation. No chest discomfort. No wheezes, rhonchi, or rales. Abdomen: Normal bowel sounds. Nontender. No rebound tenderness. Genitalia: Deferred. Back: No midline tenderness. Normal range of motion. Extremities: Normal range of motion. Left hand and wrist has significant swelling with erythema typical of insect bite with subsequent cellulitis. Skin: Intact. Neurologic: No altered sensation. No weakness. Alert and oriented. Psychiatric: No suicidality. No anxiety or depression. No insomnia. Nursing notes and vitals signs are reviewed. Const: Vital Signs, click to edit/add: Vital Signs - 24 hr 11/04/24 14:56 Temperature 97.2 F L Pulse Rate [Pulse Oximeter] 71 Respiratory Rate 16 Blood Pressure [Ri ght Upper Arm] 138/92 H Pulse Oximetry 97 Oxygen Delivery Me thod Room Air Course Vital Signs Vital signs: Initial Vital Signs Temperature 97.2 F L 11/04/24 14:56 Temperature Source Temporal Artery Scan 11/04/24 14:56 Pulse Rate 71 11/04/24 14:56 Respiratory Rate 16 11/04/24 14:56 Blood Pressure 138/92 H 11/04/24 14:56 Blood Pressure Mean 107 H 11/04/24 14:56 Blood Pressure Position Sitting 11/04/24 14:56 Pulse Oximetry 97 11/04/24 14:56 Oxygen Delivery Method Room Air 11/04/24 14:56 Vital Signs Temperature 97.2 F L 11/04/24 14:56 Pulse Rate 71 11/04/24 14:56 Respiratory Rate 16 11/04/24 14:56 Blood Pressure 138/92 H 11/04/24 14:56 Pulse Oximetry 97 11/04/24 14:56 Oxygen Delivery Method Room Air 11/04/24 14:56 Temperature 97.2 F L 11/04/24 14:56 Pulse Rate 71 11/04/24 14:56 Respiratory Rate 16 11/04/24 14:56 Blood Pressure 138/92 H 11/04/24 14:56 Pulse Oximetry 97 11/04/24 14:56 Oxygen Delivery Method Room Air 11/04/24 14:56 Medications Administered Medications: Discontinued Medications Generic Name Dose Route Start Last Admin Trade Name Madiq PRN Reason Stop Dose Admin Dexamethasone 10 mg 11/04/24 15:26 11/04/24 15:40 Dexamethasone 10 Mg/Ml Inj PO 11/04/24 15:27 10 mg ONCE ONE Administration Medical Decision Making [facility] Narrative Medical decision making narrative: This patient was stung by a wasp or a bee several x2 days ago and now has additional erythema and swelling beyond the typical reaction to a toxic event as a bee sting. She is filling signs of cellulitis but does not have any systemic reactions. She has been taking Benadryl. The patient did receive an oral dose of dexamethasone here and a prescription is sent to her pharmacy for Augmentin and Medrol Dosepak. I did describe signs and symptoms that would indicate a need for return re-evaluation. Discharge Plan Discharge Clinical Impression: Cellulitis Patient Disposition: Home w/ Parent or Adult Condition: Stable Additional Instructions: Take medication as prescribed. Follow up with MD return if worsening. Prescriptions: New methylprednisolone [Medrol (Hugh)] 4 mg tablets,dose pack See Rx Instructions .ROUTE .COMPLEX Qty: 21 0RF Rx Instructions: orally per package directions amoxicillin-pot clavulanate 875-125 mg tablet 1 tab PO BID Qty: 14 0RF No Action metoprolol succinate 50 mg tablet extended release 24 hr 50 mg PO DAILY amlodipine 5 mg tablet 5 mg PO DAILY Eliquis 5 mg tablet 5 mg PO BID Follow Up/Referrals: Shazia Forbes MD [Primary Care Provider, Family Practice] Stand Alone Forms: MyHealth Info Instructions
[2024-11-04] MEDS: DEXAMETHASONE 10 MG/ML PF PO (16:05)
== END 2024-11-04 16:10 | disposition home or self-care (01) ==
PROVIDERS: Emergency Provider Emergency Medicine Emergency Medical Services; PCP Family Medicine
DX: L03.114 Cellulitis of left upper limb (principal)
CPT/HCPCS: 99283; 99284; J1100